=== PATIENT | female | born 1970 | race Caucasian/White ===

== ENCOUNTER 2017-05-23 18:43 | Emergency (ER) | payer OTHER ==
--- NOTE | 2017-05-23 19:05 | EDM.PDOC ---
ED HPI GENERAL MEDICAL PROBLEM - General Chief Complaint: General Stated Complaint: PAIN BACK OF NECK Time Seen by Provider: 05/23/17 19:03 - History of Present Illness INITIAL COMMENTS - FREE TEXT/NARRATIVE: HISTORY AND PHYSICAL: History of present illness: Patient 47-year-old white female who presents with a concern of three-week history of neck pain who was seen in no walk-in clinic in [place] and was directed to come here for evaluation. She states she had a mild headache that at times this is retro-orbital there's been no nausea no vomiting no fever no chills no trauma no numbness weakness or other neurological signs or symptoms. Review of systems: As per history of present illness and below otherwise all systems reviewed and negative. Past medical history: As per history of present illness and as reviewed below otherwise noncontributory. Surgical history: As per history of present illness and as reviewed below otherwise noncontributory. Social history: No reported history of drug or alcohol abuse. Family history: As per history of present illness and as reviewed below otherwise noncontributory. Physical exam: HEENT: Atraumatic, normocephalic, pupils reactive, negative for conjunctival pallor or scleral icterus, mucous membranes moist, throat clear, neck supple, nontender, trachea midline. Lungs: Clear to auscultation, breath sounds equal bilaterally, chest nontender. Heart: S1S2, regular, negative for clicks, rubs, or JVD. Abdomen: Soft, nondistended, nontender. Negative for masses or hepatosplenomegaly. Negative for costovertebral tenderness. Pelvis: Stable nontender. Genitourinary: Deferred. Rectal: Deferred. Extremities: Atraumatic, negative for cords or calf pain. Neurovascular unremarkable. Neuro: Awake, alert, oriented. Cranial nerves II through XII unremarkable. Cerebellum unremarkable. Motor and sensory unremarkable throughout. Exam nonfocal. Diagnostics: CT brain CT C-spine Therapeutics: None Impression: #1 neck pain #2 cephalgia Plans: 1. CT scan of both head and neck were within normal limits. May take the Flexeril (#20) and Ultram (#20) as prescribed for pain control. 2. Please follow-up with primary care provider in 1-2 days. Follow-up with neurology as discussed. May return to the ED as needed as discussed Definitive disposition and diagnosis as appropriate pending reevaluation and review of above. Onset: Other (3 weeks) Duration: Week(s): (History) Location: Reports: Head, Neck head;neck Pain Score (Numeric/FACES): 7 - Related Data Allergies Allergy/AdvReac Type Severity Reaction Status Date / Time ketorolac tromethamine Allergy Hives Verified 05/23/17 18:47 [From Toradol] Home Meds: Home Meds . [No Known Home Meds] 05/23/17 [History] Past Medical History - Past Health History Medical/Surgical History: Denies Medical/Surgical History Musculoskeletal History: Reports: Fracture Other Musculoskeletal History: History of fracturing fingers,denies any hardware Psychiatric History: Reports: Anxiety, Depression Other Psychiatric History: hx: medication for depression and anxiety in past, none currently. Reports Chewing tobacco dependence, current use 1 can per day Endocrine/Metabolic History: Reports: Obesity/BMI 30+ - Past Surgical History Neurological Surgical History: Reports: Other (See Below) Musculoskeletal Surgical History: Reports: Arthroscopic Knee Social & Family History - Family History Family Medical History: Noncontributory - Tobacco Use Smoking Status *Q: Never Smoker Years of Tobacco use: 30 - Alcohol Use Days Per Week of Alcohol Use: 0 - Recreational Drug Use Recreational Drug Use: No Drug Use in Last 12 Months: No - Living Situation & Occupation Living situation: Reports: Other ED ROS GENERAL - Review of Systems Review Of Systems: ROS reveals no pertinent complaints other than HPI. ED EXAM, GENERAL - Physical Exam Exam: See Below (See dictation) Course - Vital Signs Last Recorded V/S: Last Vital Signs Temp 36.8 C 05/23/17 18:43 Pulse 77 05/23/17 18:43 Resp 18 05/23/17 18:43 BP 176/93 H 05/23/17 18:43 Pulse Ox 100 05/23/17 18:43 - Orders/Labs/Meds Orders: Active Orders 24 hr Category Date Time Status C-Spine [Cervical Spine wo Cont] [CT] Stat Exams 05/23/17 19:09 Taken Head wo Cont [CT] Stat Exams 05/23/17 19:03 Taken Departure - Departure Time of Disposition: 19:05 Disposition: Home, Self-Care 01 Condition: Good Clinical Impression: Neck pain, Cephalgia - Discharge Information Referrals: PCP,None [Primary Care Provider] - Forms: ED Department Discharge Additional Instructions: The following information is given to patients seen in the emergency department who are being discharged to home. This information is to outline your options for follow-up care. We provide all patients seen in our emergency department with a follow-up referral. The need for follow-up, as well as the timing and circumstances, are variable depending upon the specifics of your emergency department visit. If you don't have a primary care physician on staff, we will provide you with a referral. We always advise you to contact your personal physician following an emergency department visit to inform them of the circumstance of the visit and for follow-up with them and/or the need for any referrals to a consulting specialist. The emergency department will also refer you to a specialist when appropriate. This referral assures that you have the opportunity for followup care with a specialist. All of these measure are taken in an effort to provide you with optimal care, which includes your followup. Under all circumstances we always encourage you to contact your private physician who remains a resource for coordinating your care. When calling for followup care, please make the office aware that this follow-up is from your recent emergency room visit. If for any reason you are refused follow-up, please contact the [facility] emergency department at and asked to speak to the emergency department charge nurse. [facility] [place] [id number] [facility] Specialty Care - Neurology Professional [address], [address] [place] [address] scan of both head and neck were within normal limits. May take the Flexeril (#20) and Ultram (#20) as prescribed for pain control. 2. Please follow-up with primary care provider in 1-2 days. Follow-up with neurology as discussed. May return to the ED as needed as discussed - My Orders Last 24 Hours: My Active Orders 05/23/17 19:03 Head wo Cont [CT] Stat 05/23/17 19:09 C-Spine [Cervical Spine wo Cont] [CT] Stat - Assessment/Plan Last 24 Hours: My Active Orders 05/23/17 19:03 Head wo Cont [CT] Stat 05/23/17 19:09 C-Spine [Cervical Spine wo Cont] [CT] Stat
[2017-05-23 20:38] VITALS: BP 139/89
--- NOTE | 2017-05-27 11:24 | CT ---
EXAM DATE: 05/23/17 PATIENT'S AGE: 47 Patient: EBONIE MONET Facility: [place], [place] Site . Site : 1970 Study: CT Spine Cervical [id number]/1/2017 7:38:09 PM Ordering Physician: Joanie Irving Final Report: INDICATION: Headache and Neck Pain for 3 weeks TECHNIQUE: CT cervical spine without contrast COMPARISON: None FINDINGS: Vertebral alignment: Alignment is normal. Vertebrae: There are no fractures or suspicious bony lesions. Discs and facet joints: Disc spaces and facets are within normal limits. Extraspinal findings: Prevertebral soft tissues, visualized airway, and visualized lungs are unremarkable. Incompletely evaluated subcentimeter low attenuating nodule in the right thyroid lobe. IMPRESSION: No acute abnormality of the cervical spine. Dictated by Eliseo Villaseñor MD @ 05/23/2017 8:02:25 PM Dictated by: Eliseo Villaseñor MD @ 05/23/2017 20:02:30 (Electronic Signature) Report Signed by Proxy. [facility]
--- NOTE | 2017-05-27 11:25 | CT ---
EXAM DATE: 05/23/17 PATIENT'S AGE: 47 Patient: EBONIE MONET Facility: [place], [place] Site . Site : 1970 Study: CT Head [id number]/2017 7:40:13 PM Ordering Physician: Joanie Irving Final Report: INDICATION: Headache and Neck Pain for 3 weeks TECHNIQUE: CT Head without contrast. COMPARISON: None. FINDINGS: There is no sign of intracranial hemorrhage or mass effect. Diffuse cerebral atrophy. Nonspecific low-attenuation along the periventricular white matter, most likely related to chronic microvascular disease. The arriaga-white differentiation is preserved. No abnormal intra-axial or extra-axial fluid collection. No acute disease of the visualized paranasal sinuses and mastoid air cells. No fracture evident. No scalp hematoma/laceration. IMPRESSION: No acute intracranial process. Dictated by: Eliseo Villaseñor MD @ 05/23/2017 19:49:29 (Electronic Signature) Report Signed by Proxy. [facility]
== END 2017-05-23 20:39 | disposition home or self-care (01) ==
LOC: MW.ED 18:43
DX: R51 Headache (principal); M54.2 Cervicalgia; Z88.6 Allergy status to analgesic agent
CPT/HCPCS: 70450; 70450-26; 72125; 72125-26; 99283; 99284-25

== ENCOUNTER 2025-03-14 08:54 | Emergency (ER) | payer BC, OTHER ==
[2025-03-14 10:02] VITALS: BP 127/88; PULSE 73
== END 2025-03-14 10:01 | disposition home or self-care (01) ==
LOC: MW.ED 08:54
DX: G62.9 Polyneuropathy, unspecified (principal); Z75.3 Unavailability and inaccessibility of health-care facilities; E66.9 Obesity, unspecified; Z88.8 Allergy status to other drugs, medicaments and biological substances; Z68.28 Body mass index [BMI] 28.0-28.9, adult
CPT/HCPCS: 70450; 72125; 96372; 99284; J1100; 99282